=== PATIENT | female | born 2000 | race African-American/Black ===

== ENCOUNTER 2018-08-29 10:44 | Emergency (ER) | payer MEDICAID, OTHER ==
[2018-08-29 10:56] VITALS: BP 138/93
--- NOTE | 2018-08-29 11:03 | ED Physician Documentation ---
History of Present Illness - Stated complaint Stated Complaint: FEMALE - Chief complaint Chief Complaint: General - History obtained from History obtained from: Patient, Family - History of Present Illness Timing: How many days ago (2) Pain level max: 4 Pain level now: 2 Improved by: nothing Worsened by: nothing - Additonal information Additional information: Patient is a 18-year-old female who recently took Bactrim for a UTI and has since developed sores on the inside of her mouth and labia. States that the same thing happened last time she took Bactrim. Resolved spontaneously last time. No fevers. No vomiting. No difficulty breathing. No trouble swallowing. No other rash. Review of Systems Constitutional: denies: Fever, Chills GI: denies: Vomiting, Diarrhea : denies: Now EGA Skin: denies: Rash PD PAST MEDICAL HISTORY - Past Medical History Past Medical History: No - Past Surgical History Past Surgical History: No - Present Medications Home Medications: Ambulatory Orders Medication Instructions Recorded Confirmed Norethindrone AC-Eth Estradiol 1 08/29/18 [Junel 1.5 mg-30 Mcg Tablet] - Allergies Allergies/Adverse Reactions: Allergies Allergy/AdvReac Type Severity Reaction Status Date / Time No Known Drug Allergies Allergy Verified 08/29/18 10:49 - Social History Does the pt smoke?: No Smoking Status: Never smoker Does the pt drink ETOH?: No Substance Use and Type: Marijuana PD ED PE NORMAL - Vitals Vital signs reviewed: Yes - General General: Alert and oriented X 3, No acute distress - HEENT HEENT: Moist mucous membranes, Other (small ulcerated lesions on the lower lip, inner aspect. otherwise normal. No swelling. 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 We will have her stop this and symptoms should resolve. She is well-appearing, nontoxic. No angioedema. No anaphylaxis. Patient counseled regarding signs and symptoms for which I believe and urgent re-evaluation would be necessary. Patient with good understanding of and agreement to plan and is comfortable going home at this time This document was made in part using voice recognition software. While efforts are made to proofread this document, sound alike and grammatical errors may occur. Departure - Departure Disposition: 01 Home, Self Care Clinical Impression: Medication reaction Qualifiers: Encounter type: initial encounter Qualified Code(s): T50.905A - Adverse effect of unspecified drugs, medicaments and biological substances, initial encounter Condition: Good Instructions: ED Drug React Adverse Other Follow-Up: your,doctor as needed [Other] Comments: This should improve over the next few days. Return if you worsen. You can try liquid Benadryl in your mouth to help with any pain from the sores. You can also use Tylenol or Motrin. You should not take any more Bactrim.
== END 2018-08-29 11:21 | disposition home or self-care (01) ==
LOC: ED 10:44
DX: L98.9 Disorder of the skin and subcutaneous tissue, unspecified (principal); K13.0 Diseases of lips; T37.0X5A Adverse effect of sulfonamides, initial encounter
CPT/HCPCS: 99282